=== PATIENT | female | born 1955 | race Caucasian/White ===

== ENCOUNTER 2018-04-18 14:27 | Outpatient (CLI) | payer MEDICARE, MEDICAID ==
[2018-04-18 16:43] LABS: Hemoglobin 14.1 g/dL (12.0-16.0); Mean Corpuscular HGB CONC 35.6 g/dL (32.0-36.0); Mean Corpuscular Hemoglobin 32.3 pg (27.0-31.0); Mean Corpuscular Volume 90.6 fl (81.0-99.0); Mean Platelet Volume 6.9 fL (7.4-10.4); Platelet Count 252 thou/uL (130-400); RBC Distribution Width 13.4 % (11.5-14.5); Red Blood Cell (RBC) Count 4.38 mill/uL (4.20-5.40); White Blood Cell (WBC) Count 14.3 thou/uL (4.8-10.8)
[2018-04-18 16:49] LABS: INR-International Normal Ratio 1.1; PTT 25.3 SEC (22.9-36.1); Prothrombin Time 14.4 SEC (12.0-14.7)
[2018-04-18 17:03] LABS: Anion Gap 12 mmol/L (10-20); BUN (Urea Nitrogen) 17 mg/dL (9.8-20.1); Calc. Creatinine Clearance 0 mL/min (70-130); Calcium 9.4 mg/dL (7.8-10.44); Carbon Dioxide 31 mmol/L (23-31); Chloride 98 mmol/L (98-107); Estimated GFR-MDRD 68; Glucose 91 mg/dL (80-115); Potassium 4.2 mmol/L (3.5-5.1); Sodium 137 mmol/L (136-145)
== END 2018-04-18 14:28 | disposition home or self-care (01) ==
LOC: LABBT 14:27
PROVIDERS: ATTEND Surgery
DX: Z01.818 Encounter for other preprocedural examination (principal); M48.061 Spinal stenosis, lumbar region without neurogenic claudication; M48.02 Spinal stenosis, cervical region
CPT/HCPCS: 80048; 85027; 85610; 85730; 93005; 93010

== ENCOUNTER 2018-04-26 05:33 | Inpatient (IN) | payer MEDICARE, MEDICAID ==
[2018-04-18 15:22] VITALS: BMI 34.0
[2018-04-26] MEDS ORDERED: CEFAZOLIN/Water 2 GM/20 ML SYRINGE ONE (06:35)
[2018-04-26] MEDS ORDERED: Midazolam HCl 2 mg/2 ml Vial ONE (06:56)
[2018-04-26] MEDS ORDERED: Albumin 5% 0 ML ONE (07:08)
[2018-04-26] MEDS ORDERED: Ketamine 50 MG/ML VIAL ONE (07:08)
[2018-04-26] MEDS ORDERED: Phenylephrine HCL 10 MG/ML VIAL ONE (07:08)
[2018-04-26] MEDS ORDERED: Sodium Chloride 0.9% 10 ML ONE ×2 (07:14→07:15)
[2018-04-26] MEDS ORDERED: Bacitracin Zinc Ointment 30 gm TUBE ONE (07:15)
[2018-04-26] MEDS ORDERED: Thrombin 5000 UNITS/5 ML VIAL ONE (07:15)
[2018-04-26] MEDS ORDERED: Fentanyl 100 MCG/2 ML VIAL ONE ×4 (07:23→13:01)
[2018-04-26] MEDS ORDERED: Clindamycin/D5W 900 mg/50 ml Premix Bag ONE (07:28)
[2018-04-26] MEDS ORDERED: Levofloxacin 500 mg/D5W 100 ml Premix Bag ONE (07:28)
[2018-04-26] MEDS ORDERED: Ondansetron HCl/PF 4 MG/2 ML Vial IVP PRN (11:21)
[2018-04-26] MEDS ORDERED: Promethazine HCl 25 MG/ML VIAL IM PRN ×2 (11:21→12:09)
[2018-04-26] MEDS ORDERED: Morphine Sulfate 2 MG/ML SYRINGE SLOW IVP PRN (11:21)
[2018-04-26] MEDS ORDERED: HYDROmorphone 2 MG/ML VIAL SLOW IVP PRN (11:21)
[2018-04-26] MEDS ORDERED: Promethazine HCl 25 MG/ML VIAL SLOW IVP PRN (11:21)
[2018-04-26] MEDS ORDERED: Meperidine HCl/PF 25 MG/ML VIAL SLOW IVP PRN (11:21)
[2018-04-26] MEDS ORDERED: Acetaminophen 325 MG TAB PO PRN (12:09)
[2018-04-26] MEDS ORDERED: Mag-Al 1200 mg/1200 mg/30 ML UDCUP PO PRN (12:09)
[2018-04-26] MEDS ORDERED: Bisacodyl 10 MG SUPP PR PRN (12:09)
[2018-04-26] MEDS ORDERED: Acetaminophen/Codeine 30-300mg Tablet PO PRN (12:09)
[2018-04-26] MEDS ORDERED: Fleet Enema 133 ML BOT PR PRN (12:09)
[2018-04-26] MEDS ORDERED: traMADol HCl 50 MG TAB PO PRN (12:09)
[2018-04-26] MEDS ORDERED: Milk Of Magnesia 30 ML UDCUP PO PRN (12:09)
--- NOTE | 2018-04-26 12:33 | OP ---
DATE OF PROCEDURE: 04/26/2018 PREPROCEDURE DIAGNOSES: Cervical disk extrusion with myelopathy, radiculopathy with neck and arm maurice n, also with lumbar stenosis with low back and leg pain and history of pulmonary embolism, rheumatoid arthritis, osteoporosis. POSTPROCEDURE DIAGNOSES: Cervical disk extrusion with myelopathy, radiculopathy with neck and arm pa in, also with lumbar stenosis with low back and leg pain and history of pulmonary embolism, rheumatoi d arthritis, osteoporosis. PROCEDURE: 1. Anterior C5-C6, C6-C7 diskectomy for decompression of spinal cord nerve roots. 2. Arthrodesis with local bone autograft obtained from same incision and allograft and spacers C5-C6 , C6-C7. 3. Anterior cervical plate and screw fixation at C5, C6, C7. 4. Use of operative microscope for microdissection. 5. L4-L5 laminectomy, partial facetectomy, foraminotomies, L4-L5. PROCEDURE: After informed consent was obtained from the patient, the patient brought to OR 11. Prop er patient pause and identification was carried out. She was placed under excellent endotracheal ane sthesia and positioned supine on the OR table. The cervical spine was kept in neutral position. A r ight anterior oblique denzel was made over the C5, C6, C7 segments of the anterior neck and this region was sterilely cleansed, prepared, and draped. Proper patient pause identification was carried out. The wound was then opened with a combination of sharp, monopolar and blunt dissection. We proceeded lateral to the tracheoesophageal bundle medial to the right carotid sheath and identified the prever tebral layer of deep cervical fascia. The C5, C6, C7 segments were all exposed and retractors placed . Localization film confirmed our area of interest. We then performed distraction at C5-C6 and the microscope was brought in the field. Microdissection occurred with a diskectomy at C5-C6 with excell ent decompression of the common dural tube and the C6 nerve roots. An interbody spacer of appropriat e dimension packed with autograft and allograft was placed at C5-C6 for arthrodesis. Distraction was then released and the same procedure performed at C6-C7 with excellent decompression of the common d ural tube and the C7 nerve roots. Interbody spacer of appropriate dimension was placed at that [facility] nt as well. We then placed a spacer at C6-C7. I was satisfied with our construct. The C6-C7 space was also packed with graft. We then removed the microscope and anterior cervical plate and screw fix ation at C5, C6, C7 occurred. Her bone was soft, but I felt we had adequate purchase of the screws a nd mandaeism of lordosis. The wound was then copiously irrigated and closed in anatomic layers ove r a drain following meticulous hemostasis. The patient was then kept in cervical spine neutral position with a C-collar placed and positioned pr one on the OR table. The L4-L5 segment was identified in the lower back and this region was sterilel y cleansed, prepared, and draped after a small incision was drawn out. This area was again sterilely cleansed, prepared, and draped. Proper patient pause and identification carried out. The L4-L5 seg ment was then exposed with subperiosteal dissection. Using sharp, monopolar and blunt dissection, an d a localization film confirmed our area of interest. We then performed an L4-L5 laminectomy, partia l facetectomy, foraminotomies over the L4, L5 nerve roots. There was no spinal fluid leak. Hemostas is was maximized throughout. The wound was then closed in anatomic layers following the sprinkling o f vancomycin powder. The patient then emerged from anesthesia.
[2018-04-26] MEDS ORDERED: Esmolol 100 MG/10 ML VIAL ONE (13:10)
[2018-04-26] MEDS ORDERED: Ondansetron HCl/PF 4 MG/2 ML Vial ONE (13:10)
[2018-04-26] MEDS ORDERED: Lidocaine 1% PF 5 ML VIAL ONE (13:10)
[2018-04-26] MEDS ORDERED: Metoclopramide HCl 10 MG/2 ML VIAL ONE (13:10)
[2018-04-26] MEDS ORDERED: PROPOFOL 200 MG/20 ML VIAL ONE (13:10)
[2018-04-26] MEDS ORDERED: Vecuronium 10 MG VIAL ONE (13:10)
[2018-04-26] MEDS ORDERED: Dexamethasone 20 MG/5 ML VIAL ONE (13:10)
[2018-04-26] MEDS ORDERED: Glycopyrrolate 0.2 MG/ML 5 ML SYRINGE ONE (13:10)
[2018-04-26] MEDS ORDERED: HYDROmorphone 0.5 MG/0.5 ML SYRINGE ONE ×4 (13:24→13:58)
[2018-04-26] MEDS ORDERED: fentaNYL 50 mcg/hour Patch TD SCH (14:00)
[2018-04-26] MEDS ORDERED: Clindamycin/D5W 900 MG in Premix Bag 1 BAG IVPB SCH (14:00)
[2018-04-26] MEDS: Sodium Chloride 0.9% 1,000 ML IV SCH (15:23)
[2018-04-26] MEDS: HYDROmorphone 2 MG TAB PO SCH ×3 (15:24→20:22)
[2018-04-26] MEDS: HYDROcodone/Acetaminophen 7.5/325 mg Tablet PO PRN ×2 (15:31→21:34)
[2018-04-26] MEDS: Lorazepam 1 MG TAB PO SCH ×2 (15:31→20:28)
[2018-04-26] MEDS: Clindamycin/D5W 900 MG in Premix Bag 1 BAG IVPB SCH ×2 (15:36→23:51)
[2018-04-26] MEDS: Pramipexole Di-HCl 1 MG TAB PO SCH (20:28)
[2018-04-26] MEDS: Carvedilol 6.25 MG TAB PO SCH (20:29)
[2018-04-26] MEDS ORDERED: MILNACIPRAN HCL PO SCH (21:00)
[2018-04-26] MEDS: traZODone HCl 50 MG TAB PO SCH (21:34)
[2018-04-26] MEDS: tiZANidine HCl 4 MG TAB PO PRN (23:51)
[2018-04-27] MEDS: HYDROcodone/Acetaminophen 7.5/325 mg Tablet PO PRN ×2 (02:56→08:21)
[2018-04-27] MEDS: Sodium Chloride 0.9% 1,000 ML IV SCH ×2 (04:41→13:47)
[2018-04-27] MEDS: Levothyroxine Sodium 75 MCG TAB PO SCH (06:17)
[2018-04-27] MEDS: tiZANidine HCl 4 MG TAB PO PRN ×2 (06:17→21:54)
[2018-04-27] MEDS: Calcium Carbonate + Vit D 1 TAB PO SCH (08:20)
[2018-04-27] MEDS: Lorazepam 1 MG TAB PO SCH ×3 (08:20→20:34)
[2018-04-27] MEDS: Multivitamin W/ Minerals 1 TAB PO SCH (08:20)
[2018-04-27] MEDS: Folic Acid 1 MG TAB PO SCH (08:20)
[2018-04-27] MEDS: Calcium Carbonate 600 MG TAB PO SCH (08:20)
[2018-04-27] MEDS: Carvedilol 6.25 MG TAB PO SCH ×2 (08:23→20:35)
[2018-04-27] MEDS ORDERED: BIOTIN PO SCH (09:00)
--- NOTE | 2018-04-27 09:29 | PRG ---
DATE OF SERVICE: 04/27/2018 Ms. Finn is postoperative day 1 from C5-C7 anterior cervical diskectomy and fusion and L4-L5 lami nectomy. She states she has significant improvement in her arm and leg pain. Her drain output has b een minimal. There is some seepage around the drain exit site onto the dressing. Given her history of pulmonary embolism, we will initiate low-dose Lovenox therapy and keep the drain in place. She wi ll need physical therapy to work with her today. She lives with her mother, who is not able to analy t in the postoperative period, taking care of her daughter.
[2018-04-27] MEDS: HYDROmorphone 2 MG TAB PO SCH ×4 (11:15→20:36)
--- NOTE | 2018-04-27 11:52 | ULT ---
BILATERAL LOWER EXTREMITY VENOUS DOPPLER ULTRASOUND: Date: 04/27/18 HISTORY: History of deep venous thrombosis, recent back surgery. TECHNIQUE: Fischer scale ultrasound with color flow and spectral Doppler imaging of the deep venous systems of the lower extremities was performed bilaterally. FINDINGS: There is good flow, compression, and augmentation noted in the common femoral, femoral, deep femoral, popliteal, posterior tibial, and greater saphenous veins on either side. IMPRESSION: No evidence of deep venous thrombosis in either lower extremity. POS: CARLOZ
[2018-04-27] MEDS: Pramipexole Di-HCl 1 MG TAB PO SCH (20:35)
[2018-04-27] MEDS: traZODone HCl 50 MG TAB PO SCH (20:35)
[2018-04-27] MEDS ORDERED: risperiDONE 1 MG TAB PO SCH (21:00)
[2018-04-28] MEDS: Sodium Chloride 0.9% 1,000 ML IV SCH (04:44)
[2018-04-28] MEDS: Levothyroxine Sodium 75 MCG TAB PO SCH (05:20)
[2018-04-28] MEDS ORDERED: Enoxaparin Sodium 40 MG/0.4 ML SYRINGE SC SCH (09:00)
[2018-04-28] MEDS: Calcium Carbonate 600 MG TAB PO SCH (09:01)
[2018-04-28] MEDS: Multivitamin W/ Minerals 1 TAB PO SCH (09:06)
[2018-04-28] MEDS: Folic Acid 1 MG TAB PO SCH (09:06)
[2018-04-28] MEDS: Carvedilol 6.25 MG TAB PO SCH (09:06)
[2018-04-28] MEDS: Calcium Carbonate + Vit D 1 TAB PO SCH (09:07)
[2018-04-28] MEDS: Lorazepam 1 MG TAB PO SCH ×2 (09:07→15:42)
[2018-04-28] MEDS: HYDROmorphone 2 MG TAB PO SCH ×2 (09:08→13:55)
[2018-04-28] MEDS: tiZANidine HCl 4 MG TAB PO PRN (13:58)
[2018-04-28 15:39] VITALS: BP 105/70; TEMP 97.5
--- NOTE | 2018-04-29 04:42 | DIS ---
Nestor Lopez PA-C dictating for Guido Styles MD DATE OF ADMISSION: 04/26/2018 DATE OF DISCHARGE: 04/28/2018 DISCHARGE DIAGNOSES: 1. Cervical stenosis with cervical radiculopathy. 2. Lumbar stenosis with lumbar radiculopathy. 3. History of deep vein thrombosis and pulmonary embolism, on Eliquis. 4. Chronic pain syndrome. 5. Fibromyalgia. HOSPITAL COURSE: Ms. Finn was admitted on 04/26/2018 to undergo a staged procedure including ACD F and lumbar laminectomy with Dr. Styles. The patient's surgery was without complication and she was able to recover for 2 overnight stays in the hospital. She was discharged to inpatient rehab on pos toperative day #2, although her pain was very well controlled postoperatively. She was tolerating a clear liquid diet, pain well controlled with oral medications, walking, and voiding spontaneously. H er drain was removed on postoperative day #2. Lovenox was also initiated given the patient's history of DVT and pulmonary embolism, and we would like her to hold her Eliquis 10 days postop. Appropriat e outpatient followup appointments were scheduled and patient education was provided. At the time of discharge, the patient was neurologically intact with good strength in the bilateral upper and bilat eral lower extremities. There was no drainage from her lumbar wound incision or from the anterior ce rvical spine incision. At the time of discharge, the patient was very pleased with her outcome posto peratively and doing well.
[2018-05-03] MEDS ORDERED: RISEDRONATE SODIUM PO SCH (09:00)
== END 2018-04-28 16:31 | DRG 472 ==
LOC: SDC 05:33 → SURG A 12:06
PROVIDERS: ADMIT Surgery; ATTEND Surgery
PROC: 0RG Upper Joints, Fusion (ICD-10-PCS; principal; 2018-04-26)
PROC: 0RT30ZZ Resection of Cervical Vertebral Disc, Open Approach (ICD-10-PCS; 2018-04-26)
PROC: 01NB0ZZ Release Lumbar Nerve, Open Approach (ICD-10-PCS; 2018-04-26)
DX: M48.02 Spinal stenosis, cervical region (principal); M50.022 Cervical disc disorder at C5-C6 level with myelopathy; M48.061 Spinal stenosis, lumbar region without neurogenic claudication; M54.12 Radiculopathy, cervical region; Z86.711 Personal history of pulmonary embolism; M06.9 Rheumatoid arthritis, unspecified; M81.0 Age-related osteoporosis without current pathological fracture; M54.16 Radiculopathy, lumbar region; Z86.718 Personal history of other venous thrombosis and embolism; Z79.01 Long term (current) use of anticoagulants; M79.7 Fibromyalgia; Z79.899 Other long term (current) drug therapy; Z88.0 Allergy status to penicillin; Z88.8 Allergy status to other drugs, medicaments and biological substances
CPT/HCPCS: 76001; 93970; 96374; A4216; C1713; C1776; G8978-GP-CI; G8979-GP-CI; G8987-GO-CI; G8988-GO-CI; G8989-GO-CI; J0131; J1170; J1650; J1956; J2250; J2370; J3010; J3370; J3490; P9045

== ENCOUNTER 2018-06-10 08:59 | Outpatient (CLI) | payer MEDICARE, MEDICAID ==
--- NOTE | 2018-06-10 11:25 | RAD ---
AP AND LATERAL STANDARD CERVICAL SPINE: HISTORY: M48.02 (spinal stenosis, cervical region). COMPARISON: None. FINDINGS: There is ACDF hardware at C5-C7 with diskectomy changes. Overlying shoulders limit evaluation. There is reversal of the normal cervical lordosis. Moderate facet arthropathy. IMPRESSION: Limited evaluation of the cervical hardware without definite complication. There appears to be C7/T1 anterolisthesis. POS: C
== END 2018-06-10 09:00 | disposition home or self-care (01) ==
LOC: TBSIIMAG 08:59
PROVIDERS: ATTEND Surgery
DX: M48.02 Spinal stenosis, cervical region (principal)
CPT/HCPCS: 72040

== ENCOUNTER 2024-12-01 14:00 | Emergency (ER) | payer MEDICARE, OTHER ==
[~2024-12-01 14:00] MED LIST: Iopamidol-370 76% 500 ML MDV (1 ML CHARGE) ONE
[2024-12-01] MEDS ORDERED: HYDROmorphone 0.5 MG/0.5 ML SYRINGE ONE (16:15)
[2024-12-01 16:18] LABS: #Basophils 0.04 10x3/uL (0.0-0.2); %Basophils 0.3 % (0.0-1.0); %Eosinophils 0.2 % (0.0-10.0); %Lymphocytes 20.8 % (21.0-51.0); %Monocytes 10.7 % (0.0-10.0); %Neutrophils 67.7 % (42.0-75.0); Hematocrit 39.5 % (36.0-47.0); Hemoglobin 13.4 g/dL (12.0-16.0); Mean Corpuscular HGB CONC 33.9 g/dL (32.0-36.0); Mean Corpuscular Hemoglobin 30.3 pg (27.0-31.0); Mean Corpuscular Volume 89.4 fL (78.0-98.0); Mean Platelet Volume 9.6 fL (7.4-10.4); Platelet Count 216 10x3/uL (130-400); RBC Distribution Width 13.8 % (11.5-14.5); Red Blood Cell (RBC) Count 4.42 mill/uL (4.20-5.40)
[2024-12-01 16:29] LABS: ALT (SGPT) 35 U/L (Less than 34); AST (SGOT) 47 U/L (11-34); Alkaline Phosphatase 101 U/L (40-110); Anion Gap 19 mmol/L (10-20); BUN (Urea Nitrogen) 24 mg/dL (9.8-20.1); Bilirubin, Total 1.3 mg/dL (0.3-1.2); Calc. Creatinine Clearance 0 mL/min (70-130); Calcium 8.7 mg/dL (7.8-10.44); Carbon Dioxide 27 mmol/L (23-31); Chloride 101 mmol/L (98-107); Estimated GFR 48; Glucose 80 mg/dL (80-115); Potassium 3.2 mmol/L (3.5-5.1); Protein, Total 7.4 g/dL (5.8-8.1); Sodium 144 mmol/L (136-145)
[2024-12-01 16:34] LABS: Globulin 3.4 g/dL (2.4-3.5); Troponin I Less than 0.010 ng/mL (< 0.028)
[2024-12-01 16:38] LABS: Bacteria/HPF None Seen HPF (None Seen); Bilirubin Negative (Negative); Blood, Urine Negative (Negative); CAUTI Indications for Culture Acute Hematuria; Clarity Clear (Clear); Glucose, Urine (Dipstick) Normal (Negative); Ketone, Urine Negative (Negative); Leukocyte Negative Leu/uL (Negative); Nitrite Negative (Negative); Protein, Urine (Dipstick) 10 mg/dL (Neg-Trace); RBC/HPF 0-3 HPF (0-3); Specific Gravity, Urine 1.017 (1.002-1.036); Squamous Epithelial 0-3 HPF (0-3); Urobilinogen Normal mg/dL (Less than 2); WBC/HPF 0-3 HPF (0-3)
[2024-12-01 16:41] LABS: Urine Culture Reflex No No
[2024-12-01 17:12] LABS: Actual Bicarbonate (HCO3v) 26.6 mEq/L (22-28); Analyzer IN Cardio ER; Chloride (VBG) 98 mmol/L (98-106); Hematocrit-VBG 42 % (36.0-47.0); Hemoglobin (Hb) 14.2 g/dL (11.7-16.1); Potassium (VBG) 3.33 mmol/L (3.70-5.30); Sodium 140 mmol/L (133-146); pH (venous) 7.383 (7.32-7.43)
[2024-12-01 17:36] LABS: INR-International Normal Ratio 1.8; PTT 28.9 sec (22.9-36.1); Prothrombin Time 21.2 sec (12.0-14.7)
== END 2024-12-01 19:28 | disposition home or self-care (01) ==
LOC: ERS 14:00
DX: R06.00 Dyspnea, unspecified (principal); F41.9 Anxiety disorder, unspecified; E03.9 Hypothyroidism, unspecified; F17.210 Nicotine dependence, cigarettes, uncomplicated; Z79.890 Hormone replacement therapy
CPT/HCPCS: 36415; 71275; 74177; 80053; 81001; 82805; 83880; 84484; 85025; 85610; 85730; 93005; 96361; 96365; J1171; Q9967